=== PATIENT | female | born 1970 ===

== ENCOUNTER 2018-06-18 11:38 | Outpatient (CLI) | payer OTHER | END 2018-06-18 11:39 | disposition home or self-care (01) | LOC: C.USIC 11:38 | DX: R92.8 Other abnormal and inconclusive findings on diagnostic imaging of breast (principal); N64.4 Mastodynia ==

== ENCOUNTER 2018-07-03 10:22 | Outpatient (CLI) | payer OTHER | END 2018-07-03 13:45 | disposition home or self-care (01) | LOC: C.SPRAD 10:22 ==